=== PATIENT | female | born 1985 | race Caucasian/White ===

== ENCOUNTER 2017-01-31 17:34 | Emergency (ER) | payer OTHER ==
[~2017-01-31] VITALS: Ht 157.5 cm; Wt 56.8 kg
[2017-01-31 17:42] VITALS: BP 142/97; PULSE 168; RESP 16; O2SAT 100
--- NOTE | 2017-01-31 17:58 | ED.REPORT ---
HPI-General Illness Date of Service Jan 31, 2017 ED Provider: Dr. Valderrama Pt is a 32 y/o female w/ a hx of paroxysmal SVT, hypothyroid, presenting to the ED c/o rapid palpitations which occurred from 16:20-17:40 today. During the episode she was experiencing chest pain, shortness of breath, and palpitations. She is asymptomatic when the palpitations do not occur. The patient has a history of paroxysmal SVT and has seen a carroting machine operator who told her that she could have an intervention when she becomes closer to 41. She performed a Valsalva maneuver upon arrival to the ED which resolved her symptoms. She started antibiotics yesterday for pyelonephritis and kidney stones and is also taking levothyroxine. Nursing Notes Stated Complaint: CHEST PAIN,TACHYCARDIA Chief Complaint: Chest Pain Nursing Notes Reviewed: Yes Allergies: Coded Allergies: NSAIDS (Non-Steroidal Anti-Inflamma (Verified Allergy, Severe, GI BLEED, ) sumatriptan (Verified Allergy, Severe, SLEEPS FOR 20 HRS, 01/31/17) General Time Seen by MD: 17:58 Chief Complaint Other (palpitations) Hx Obtained From: Patient Arrived By: Walk-in Sudden in Onset?: Yes Onset Occurred: 1 - 4 hours ago Symptom Duration: 46 - 59 minutes Location: : Chest Quality: Painful Severity: Current: No pain currently Severity: Maximum: Moderate Recent Healthcare: Recent testing, Previous diagnosis, Prior workup Similar Sx Previous: Yes Past Medical History Past Medical History Paroxysmal SVT Hypothyroid Past Surgical History None reported Smoking History Unknown if Ever Smoker Ambulatory Status Independent Review of Systems Full Review of Systems Respiratory: Reports: Shortness of breath Cardiovascular: Reports: Chest pain, Palpitations Complete sys rev & neg: except as marked. Physical Exam Vital Signs Vital Signs Date Time Temp Pulse Resp B/P Pulse Ox O2 Delivery O2 Flow Rate FiO2 01/31/17 20:39 85 18 126/68 100 Room Air 01/31/17 17:42 36.7 168 16 142/97 100 Room Air Initial VS: Reviewed, Vital signs abnormal Head / Eyes: Atraumatic, Normocephalic ENT: Mucous membranes moist, Conjunctiva normal, No scleral icterus Neck: Supple, Full range of motion Respiratory: Breath sounds normal, Clear to auscultation, No respiratory distress Cardiovascular: Regular rate & rhythm, Heart sounds normal, Intact distal pulses Abdomen / GI: Soft, Non-tender Extremities: Vascular intact, Neuro intact, No swelling Skin: Warm, Dry, No cyanosis Neurologic: Alert, Oriented, Nonfocal Psychiatric: Mood/affect normal, Behavior normal, Normal thought content General/Constitutional: Awake, Alert, No acute distress, Well appearing, Cooperative, Not toxic appearing Interpretation & Diagnostics Lab Results Interpretation Result Diagram: 01/31/17 192 Test 01/31/17 19:20 01/31/17 19:51 Sodium Level 139mEq/L (134-144) Potassium Level 4.1mEq/L (3.5-5.2) Chloride Level 105mEq/L (97-108) Carbon Dioxide Level 22mmol/L (18-29) Blood Urea Nitrogen 17mg/dL (6-20) Creatinine 0.63mg/dL (0.57-1.00) Estimat Glomerular Filtration Rate 158mL/min (>59) Glucose Level 94mg/dL (60-99) Calcium Level 9.1mg/dL (8.5-10.1) Hold Timmons Top Tube Received (Received) ECG Interpretation ECG Interpretation: No sign of WPW. No previous available for comparison Time: 19:10 Interpreted by: ED physician Normal ECG Interpretation: Normal ECG w/ rate of... (87), Normal rate, Normal sinus rhythm, No acute ischemic changes, Normal QRS, Normal axis, Normal intervals, Adequate tracing Re-Eval/Medical Decision Med Decision/Clinical Course The patient converted to sinus rhythm shortly after arrival here. She did this by performing a Valsalva maneuver. It has been 5 years since her last episode. She was evaluated for EKG abnormalities such as WPW and Abnormalities, her evaluation was unremarkable and she remained asymptomatic. Source of Hx: Old records Time of Eval: 20:27 Re-Evaluation/Progress Note: Pt rechecked. Informed pt of plan for discharge. Pt understands and agrees with plan for discharge. F/U instructions and RTER warnings given. All questions addressed. Counseled Regarding: Diagnosis, Lab results, Need for follow-up, When/why to return to ED Discharge & Departure Primary Impression: Paroxysmal SVT (supraventricular tachycardia) Disposition: Home Discharge Condition All VS Reviewed: Yes Condition: Improved Patient Instructions: Supraventricular Tachycardia (ED) Additional Instructions: The rhythm your presented with is called supraventricular tachycardia. There are some physical maneuvers that sometimes resolve it. Return to the emergency department if you experience persistent palpitations or any other concerning symptoms. Follow-up with your primary care doctor next week. Scribe Attestation Portions of this note were transcribed by Mk Parr. I, Dr. Valderrama, personally performed the history, physical exam and medical decision-making; I reviewed and confirmed the accuracy of the information in the transcribed note. Aura Valderrama MD Jan 31, 2017 17:58 MK PARR Jan 31, 2017 18:46
[2017-01-31 20:39] VITALS: BP 126/68; PULSE 85; RESP 18; O2SAT 100
== END 2017-01-31 20:40 | disposition home or self-care (01) ==
LOC: SED 17:34
DX: I47.1 Supraventricular tachycardia (principal); E03.9 Hypothyroidism, unspecified; Z88.6 Allergy status to analgesic agent; Z88.8 Allergy status to other drugs, medicaments and biological substances